=== PATIENT | female | born 1950 | race African-American/Black ===

== ENCOUNTER 2017-07-12 17:26 | Emergency (ER) | payer OTHER ==
[~2017-07-12] VITALS: Ht 160 cm; Wt 105.8 kg
[~2017-07-12 17:26] MED LIST: CAL-CITRATE PL1 EACH PO; COZAAR25 MG PO; FIORICET,ESG1 TABLET PO; OMEPRAZOLE40 M1 PO
[2017-07-12 20:56] LABS: ADD MIUA? YES; BILIRUBIN NEGATIVE; BLOOD SMALL; COLOR YELLOW ((YELLOW)); GLUCOSE (STRIP) NEGATIVE; KETONES NEGATIVE; LEUKOCYTES MODERATE; NITRITE NEGATIVE; PROTEIN (STRIP) NEGATIVE; SPECIFIC GRAVITY 1.021 (1.000-1.030)
[2017-07-12 21:03] LABS: HEMATOCRIT 45.9 % (36.0-46.0); MCH 26.4 PG (29.0-34.0); MCHC 31.6 G/DL (30.0-36.0); MCV 83.5 FL (83-99); MEAN PLAT.VOLUME 10.4 uM^3 (9.5-12.4); PLATELET COUNT 198 K/uL (156-360); RBC DIS.WIDTH-CV 13.9 % (11.8-14.6); RBC DIS.WIDTH-SD 42.5 % (39-53); WHITE BLOOD COUNT 8.1 K/uL (4.1-10.2)
[2017-07-12 21:06] LABS: BACTERIA NONE SEEN /HPF; EPITHELIAL CELLS NONE SEEN /HPF; MUCUS TRACE /LPF; UCUL ADDED? YES; UNCLASSIFIED CRYSTALS 2+ /HPF; WHITE BLOOD CELLS 15-20 /HPF (0-5)
[2017-07-12 21:12] LABS: CHLORIDE 108 mEq/L (99-109); POTASSIUM 4.4 mEq/L (3.7-5.4); SODIUM 144 mEq/L (136-147)
[2017-07-12 21:14] LABS: GLUCOSE 110 mg/dL (70-99)
[2017-07-12 21:15] LABS: ANION GAP 10 MEQ/L (2-14)
[2017-07-12 21:16] LABS: TOTAL BILIRUBIN 0.4 mg/dL (0.0-1.0)
[2017-07-12 21:18] LABS: ALKALINE PHOSPHATASE 83 IU/L (3-129); GFR ESTIMATE (CALCULATED) > 59 mL/min/
[2017-07-12 21:19] LABS: UREA NITROGEN (BUN) 26 mg/dL (9-23)
[2017-07-12 21:21] LABS: LIPASE 29 U/L (1.0-51.0)
[2017-07-12 21:23] LABS: TROP-I INTERPRETATION NEGATIVE; TROPONIN-I < 0.01 ng/mL (0.0-0.30)
[2017-07-12] MEDS ORDERED: KEFLEX500 MG PO (22:34)
[2017-07-12] MEDS ORDERED: TESSALON PERLE100 MG PO (22:36)
[2017-07-12] MEDS ORDERED: VENTOLIN HFA18 GM IH (22:36)
[2017-07-12 23:04] VITALS: BP 140/93
== END 2017-07-12 23:06 | disposition home or self-care (01) ==
LOC: EME 17:26 → EXP 17:26
PROVIDERS: Nurse Practitioner Family
DX: N39.0 Urinary tract infection, site not specified (principal); I50.9 Heart failure, unspecified; M54.6 Pain in thoracic spine; R19.7 Diarrhea, unspecified; I11.0 Hypertensive heart disease with heart failure
CPT/HCPCS: 71020; 74177; 80053; 81003; 83690; 84484; 85027; 87086; 93005; J1885; J2270; J2405; J7030